=== PATIENT | male | born 1980 | race Caucasian/White ===

== ENCOUNTER 2017-02-23 11:06 | Inpatient (IN) | payer OTHER ==
[2017-02-23] MEDS ORDERED: NS 1,000 ML IV ONE (13:30)
--- NOTE | 2017-02-23 13:38 | EDPHY ---
General - History Smoking Status: Never smoked Narrative: CHIEF COMPLAINT: Abdominal pain, high white count HISTORY OF PRESENT ILLNESS: Patient complains of right lower quadrant pain, night sweats, intermittent fever and nausea. I evaluated this patient 2 weeks ago and diagnosed with acute , perforated appendicitis with abscess formation. He was taken to the operating room by Dr. Dos Santos. He had a partial laparotomy for ruptured appendix with abscess formation. Extensive washout. He was in the hospital for 4 days. Discharged home stable condition with improvement until the last few days. He has had increasing right lower quadrant pain that radiates down the leg. He was seen in the surgeon's office today by the PA. He had laboratory studies drawn there that was reported leukocytosis of 16,000. He was sent to the emergency department for CT scan. This was conveyed by the PA to the ED attending. No other associated complaints or modifying factors. REVIEW OF SYSTEMS: Ten systems reviewed and are negative unless otherwise noted in the HPI PCP: None currently SPECIALISTS: Dr. Dos Santos and Dr. Mancera PAST MEDICAL HISTORY: Acute appendicitis PAST SURGICAL HISTORY: Laparoscopic appendectomy February 10 SOCIAL HISTORY: Nonsmoker. Independently employed FAMILY HISTORY: Noncontributory EXAMINATION General Appearance: Alert, no distress Head: normocephalic, atraumatic Eyes: Pupils equal and round, no conjunctival pallor or injection ENT, Mouth: Mucous membranes moist Neck: Normal inspection, supple, non-tender Respiratory: Lungs are clear to auscultation Cardiovascular: Regular rate and rhythm. No murmur Gastrointestinal: Abdomen is soft and nondistended. There is moderate induration/mass and tenderness in the right lower quadrant. No tympany. No rigidity. No guarding. Back: non-tender, no bony abnormalities Neurological: A&O, nonfocal, normal gait Skin: Warm and dry, no rash Extremities: Nontender, no pedal edema Psychiatric: Mood and affect normal DIFFERENTIAL DIAGNOSES: Including but not limited to abdominal abscess, peritonitis, postoperative complication, colitis, diverticulitis MDM: 1:35 p.m. Increasing abdominal pain with reported leukocytosis. I evaluated this patient 2 weeks ago and diagnosed with acute, perforated appendicitis with abscess formation. He was taken to the operating room by Dr. Dos Santos. He had a partial laparotomy for ruptured appendix with abscess formation. Extensive washout. He was in the hospital for 4 days. Discharged home stable condition with improvement until the last few days. He now has increasing abdominal pain , night sweats, nausea and an abnormal abdominal exam. He was sent here by the PA from the surgeon's office for CT scan with IV contrast. This has been ordered at 11:15 a.m. but not yet obtained. He is in no acute distress with vital signs stable. He is declining pain medication at this time. 2:02 p.m. Creatinine by i-STAT is 0.9. I have notified ekg technician Kendy, and they will take him to the scanner next. 2:[address] Xiao has been notified by radiologist of the CT scan findings. There is complex abscess formation on the right lower quadrant that does not seem to be reachable by percutaneous drainage. There is an additional fluid collection the pelvis. All discussed with General surgery. 2:50 p.m. Case discussed with General surgery DONTRELL Wyatt. She will review the CT scan with Dr. Alfred and return my call. She does not want us to start antibiotics at this time. 3:20 p.m. Case discussed with General surgery PA. She has entered admission orders for the patient. Plan for Dr. Alfred to see the patient shortly in the ED. Plan for OR for washout. She would like Invanz on hold for the OR. No further orders. He is admitted in stable condition. 3:30 p.m. Contacted again by general surgery DONTRELL Wyatt. She informs me that after further discussion with Dr. Alfred they are not planning to take the patient to the operating room at this time. The plan is for interventional radiology percutaneous drainage of the right lower quadrant abscess and monitoring of the pelvic abscess. Please see her documentation for further care. I have updated the patient of this and he is resting comfortably in no acute distress. He remains NPO 4:00 p.m. Case discussed with Dr. Winslow in the emergency department. He plans for interventional percutaneous drainage of abscess. At this time the patient remains in stable condition and has been admitted to Dr. Alfred. SUPERVISION: Patient was independently examined, but I discussed the case with my secondary supervising physician Dr. Xiao (Shaheen Barroso) The patient was evaluated and managed by the physician assistant speech language pathologist. I have reviewed this chart and I agree with the findings and plan of care as documented , as indicated by my signature. I am the secondary supervising physician. ( Xenia Xiao) - Diagnostics Imaging Results: Imaging Impressions Abdomen CT 02/23/17 11:19 Impression: 1. Complex multilobulated abscess in the right lower quadrant. 2. Small central pelvic fluid collection, suggesting abscess, although lack of enteric contrast slightly limits sensitivity. 3. Additional findings as above. Findings discussed with Dr. Xenia Xiao on February 23, 2017 at 1443 hours. - Objective Vital Signs: Initial Vital Signs Temperature (C) 36.4 C 02/23/17 11:13 Heart Rate 81 02/23/17 11:13 Respiratory Rate 16 02/23/17 11:13 Blood Pressure 114/81 H 02/23/17 11:13 O2 Sat (%) 96 02/23/17 11:13 O2 Delivery Mode Room Air O2 (L/minute) 2 Allergies/Adverse Reactions: No Known Allergies Allergy (Unverified 02/23/17 11:12) Home Medications: Medication Instructions Recorded NK [No Known Home Meds] 02/23/17 Laboratory Results: Laboratory Results 02/24/17 09:32 02/24/17 09:32 WBC 11.08 10^3/uL H 10^3/uL (3.80-9.50) RBC 4.13 10^6/uL L 10^6/uL (4.40-6.38) Hgb 11.8 g/dL L g/dL (13.7-17.5) Hct 35.3 % L % (40.0-51.0) MCV 85.5 fL fL (81.5-99.8) MCH 28.6 pg pg (27.9-34.1) MCHC 33.4 g/dL g/dL (32.4-36.7) RDW 12.9 % % (11.5-15.2) Plt Count 199 10^3/uL D 10^3/uL (150-400) MPV 8.5 fL L fL (8.7-11.7) Neut % (Auto) 72.5 % % (39.3-74.2) Lymph % (Auto) 12.8 % L % (15.0-45.0) [place] % (Auto) 12.2 % % (4.5-13.0) Eos % (Auto) 1.4 % % (0.6-7.6) Baso % (Auto) 0.6 % % (0.3-1.7) Nucleat RBC Rel Count 0.0 % % (0.0-0.2) Absolute Neuts (auto) 8.03 10^3/uL H 10^3/uL (1.70-6.50) Absolute Lymphs (auto) 1.42 10^3/uL 10^3/uL (1.00-3.00) Absolute Monos (auto) 1.35 10^3/uL H 10^3/uL (0.30-0.80) Absolute Eos (auto) 0.16 10^3/uL 10^3/uL (0.03-0.40) Absolute Basos (auto) 0.07 10^3/uL 10^3/uL (0.02-0.10) Absolute Nucleated RBC 0.00 10^3/uL 10^3/uL (0-0.01) Immature Gran % 0.5 % % (0.0-1.1) Immature Gran # 0.05 10^3/uL 10^3/uL (0.00-0.10) Microbiology Results: MICROBIOLOGY 02/23/17 17:00 Abdomen - Aspirate Gram Stain - Final 02/23/17 17:00 Abdomen - Aspirate Anaerobic Culture - Preliminary Medications Given: Ertapenem (Invanz) 1 gm IVP DAILY FRANCESCA PRN Reason: Protocol Stop: 03/26/17 08:59 Last Admin: 02/24/17 09:07 Dose: 1 gm Sodium Chloride (Ns) 1,000 mls @ 30 mls/hr IV CONT FRANCESCA Stop: 08/22/17 15:59 Last Admin: 02/23/17 17:11 Dose: 1,000 mls Potassium Chloride/Dextrose/Sod Cl (D5w 1/2 Ns W/ 20 Kcl/L) 1,000 mls @ 100 mls /hr IV CONT FRANCESCA Stop: 08/22/17 21:44 Last Admin: 02/23/17 22:20 Dose: 1,000 mls Ibuprofen (Motrin) 600 mg PO Q6HRS PRN PRN Reason: Pain, Inflammatory Stop: 08/23/17 11:13 Last Admin: 02/24/17 11:37 Dose: 600 mg Senna/Docusate Sodium (Senokot-S) 1 - 2 tab PO BID FRANCESCA PRN Reason: Protocol Stop: 08/23/17 11:29 Last Admin: 02/24/17 11:34 Dose: 2 tab Discontinued Medications Hydrocodone Bitart/Acetaminophen ([place] 5/325) 2 tab PO Q4 PRN PRN Reason: Pain, Moderate Able to Take PO Stop: 03/05/17 17:14 Last Admin: 02/24/17 12:23 Dose: 1 tab Ertapenem (Invanz) 1 gm IVP EDNOW ONE PRN Reason: Protocol Stop: 02/23/17 15:08 Last Admin: 02/23/17 16:22 Dose: 1 gm Fentanyl (Sublimaze) 0 mcg IVP ONCALL PRN PRN Reason: Per provider during procedure Stop: 02/23/17 16:52 Last Admin: 02/23/17 17:11 Dose: 150 mcg Sodium Chloride (Ns) 1,000 mls @ 0 mls/hr IV EDNOW ONE; Wide Open PRN Reason: Protocol Stop: 02/23/17 13:31 Last Admin: 02/23/17 14:06 Dose: 1,000 mls Midazolam HCl (Versed) 0 mg IVP ONCALL PRN PRN Reason: Per provider during procedure Stop: 02/23/17 16:52 Last Admin: 02/23/17 17:11 Dose: 2 mg Departure - Departure Disposition: [facility] Acute Clinical Impression: Abscess of male pelvis Intra-abdominal abscess post-procedure Qualifiers: Encounter type: initial encounter Qualified Code(s): T81.4XXA - Infection following a procedure, initial encounter Condition: Good
[2017-02-23] MEDS ORDERED: IOPAMIDOL (ISOVUE-300) 100 ML BTL ONE ×2 (14:04→17:13)
[2017-02-23] MEDS ORDERED: ERTAPENEM 1 GM VIAL IVP ONE (15:07)
[2017-02-23] MEDS ORDERED: ONDANSETRON 4 MG/2 ML VIAL IVP PRN (15:09)
[2017-02-23] MEDS ORDERED: ONDANSETRON DISINTEGRATING 4 MG TAB PO PRN (15:09)
[2017-02-23] MEDS ORDERED: diphenhydrAMINE 25 MG CAP PO PRN (15:09)
[2017-02-23] MEDS ORDERED: PROTAMINE SULFATE 50 MG/5 ML VIAL IVP PRN (15:52)
[2017-02-23] MEDS ORDERED: ALTEPLASE 2 MG VIAL IVP PRN (15:52)
[2017-02-23] MEDS ORDERED: fentaNYL 100 MCG/2 ML INJ IVP PRN (15:52)
[2017-02-23] MEDS ORDERED: HEPARIN 10,000 UNIT/10 ML MDV (1,000 UNIT/ML) IVP PRN (15:52)
[2017-02-23] MEDS ORDERED: MEPERIDINE 25 MG/ML SYR IVP PRN (15:52)
[2017-02-23] MEDS ORDERED: NALOXONE HCL 0.4 MG/ML INJ IVP PRN (15:52)
[2017-02-23] MEDS ORDERED: GLUCAGON HCL 1 MG VIAL IVP PRN (15:52)
[2017-02-23] MEDS ORDERED: MIDAZOLAM 2 MG/2 ML VIAL IVP PRN (15:52)
[2017-02-23] MEDS ORDERED: FLUMAZENIL 0.5 MG/5 ML MDV IVP PRN (15:52)
[2017-02-23] MEDS ORDERED: NS 1,000 ML IV SCH (16:00)
[2017-02-23 16:17] LABS: INR 1.17 (0.83-1.16); PROTIME(PATIENT) 15.1 SEC (12.0-15.0)
--- NOTE | 2017-02-23 17:12 | PDPROPOC ---
Sedation Plan of Care Sedation Plan of Care: vital signs stable (tachycardic) ASA Classification: ASA 3 Planned drugs: fentanyl, midazolam Mallampati Score: Class 2 Mallampati Reference Image: Patient passed 3-3-2 rule?: Yes
--- NOTE | 2017-02-23 17:15 | PDRADPN ---
Radiology Procedure Note Date of Procedure: 02/23/17 Radiologist: Roge Winslow Anesthesia: IV Sedation Pre-op Diagnosis: Abdominal abscesses Post-op Diagnosis: Same Indication: RLQ pain and chills for last four days. Appendectomy two weeks ago. Procedure: Percutaneous abscess drainage Finding(s): 12 ml thick golden pus from right lower quadrant, anterior abdomen. No communication to deeper collection found today. Inf/Abcess present in the surg proc area at time of surgery?: Yes Depth: Organ Space EBL: Minimal Complications: None. Drains: Other (10 F pigtail) Specimen(s): 10 ml pus sent to lab for aerobic, anaerobic, and fungal stains and cultures.
--- NOTE | 2017-02-23 17:48 | GHP ---
[f rep st] HISTORY AND PHYSICAL DATE OF ADMISSION: 02/23/2017 ADMITTING DIAGNOSIS: Right lower quadrant pain after perforated appendicitis. HISTORY OF PRESENT ILLNESS: The patient is a pleasant 36-year-old man who was taken to the operating room by Dr. Aroldo Dos Santos on 02/06/2017. At the time of surgery, he was found to have acute perforated appendicitis with an abscess cavity and multiple fecaliths. He completed a course of antibiotics as an outpatient. He did not have a drain placed. Approximately 2 weeks after his surgery, he developed worsening fatigue, night sweats, and right lower quadrant pain. He describes the pain as intermittent but sharp. He denies any nausea, vomiting, or fevers. He reports normal appetite, as well as normal bowel function. I saw and evaluated him in the office this morning, at which time he had a palpable mass in his right lower quadrant. I attempted to get a CT scan authorized as an outpatient, but this is not feasible, so I sent him through the emergency room. This morning, prior to his appointment, he had lab work done, most notably revealing a leukocytosis of 16,000. In the ER, he had an abdominal CT which revealed complex multilobulated abscess in the right lower quadrant with a small central pelvic fluid collection measuring approximately 2 x 3 cm. PAST MEDICAL HISTORY: None. PAST SURGICAL HISTORY: Laparoscopic open-assist appendectomy, oral surgery. FAMILY HISTORY: Noncontributory. SOCIAL HISTORY: He is with 3 children. He denies tobacco, alcohol, or recreational drug use. REVIEW OF SYSTEMS: Ten-point review of systems negative, aside from HPI. PHYSICAL EXAMINATION: VITALS: Temperature was 97.3 Fahrenheit in our office. GENERAL: Well-developed, well-nourished man in no acute distress. Nontoxic appearing. HEENT: Normocephalic, atraumatic. No hearing deficits. Pupils equal and round. No scleral icterus. Mucous membranes moist. NECK: Trachea midline. RESPIRATORY: Clear to auscultation bilaterally. No increased work of breathing. CARDIOVASCULAR: Regular rate and rhythm. No peripheral edema. ABDOMEN: Hypoactive bowel sounds throughout. Soft, nondistended. He has tenderness to palpation in the right lower quadrant with a palpable mass in this area. No other tenderness to palpation of the remainder of the abdomen. I do not detect any rebound or guarding. SKIN: Warm and dry. No rash. MUSCULOSKELETAL: Normal gait. Normal nails. PSYCH: Mood and affect normal. IMPRESSION AND PLAN: The patient is a 36-year-old man with an intra-abdominal abscess following perforated appendicitis. The case was discussed in great detail with Dr. Alfred. Dr. Alfred recommends that the patient have percutaneous drainage placed by Interventional Radiology of the right lower quadrant fluid collection. At this time, we will monitor the pelvic fluid collection. If any increase in size or no improvement, then he may require diagnostic laparoscopy with washout. He will remain n.p.o. at this time for his procedure. The case was discussed with Dr. Winslow. He will receive IV Invanz while inpatient. I saw and evaluated the patient this morning in our office, and the patient was additionally evaluated by Dr. Alfred. /[id number]/MODL MTDD
[2017-02-23] MEDS: HYDROCODONE/APAP 5/325 TAB PO PRN (18:55)
--- NOTE | 2017-02-23 21:39 | SOAPPROG ---
SOAP Progress Note Assessment/Plan: Assessment: 36-year-old male seen in conjunction with Maira JON. Patient 2 weeks status post perforated appendix and now presents with fever right lower quadrant abdominal pain. CT scan shows a periappendiceal abscess in a possible small pelvic abscess/right upper quadrant abscess was drained percutaneously with some success but pelvic abscess is not a minimal at this time to percutaneous drainage Patient appears comfortable/HEENT nonicteric without adenopathy Chest clear Cor regular rhythm Abdomen soft slightly distended very tender in the right lower quadrant/no hernias/well-healed midline incision Genitalia normal Extremities full range of motion full pulses Neurologic exam is physiologic Vital signs stable but temp 102.8 Risks and options fully discussed with the patient and his Plan: Monitor on IV antibiotics/if not improving then consider laparoscopy and/ or laparotomy for better drainage 02/23/17 21:36 Objective: Vital Signs Temp Pulse Resp BP Pulse Ox 38.9 C H 114 H 14 117/71 94 02/23/17 19:38 02/23/17 18:42 02/23/17 18:42 02/23/17 18:42 02/23/17 18:42 Microbiology 02/23/17 17:00 Gram Stain - Final Abdomen - Aspirate 02/22/17 02/23/17 02/24/17 05:59 05:59 05:59 Intake Total 1300 Balance 1300 PT 15.1 SEC (12.0-15.0) H 02/23/17 13:50 INR 1.17 (0.83-1.16) H 02/23/17 13:50 ICD10 Worksheet Patient Problems: Problems Problem Status Onset Abscess of male pelvis Acute Intra-abdominal abscess post-procedure Acute
[2017-02-23] MEDS ORDERED: D5W 1/2 NS W/ 20 KCl/L 1,000 ML IV SCH (21:45)
[2017-02-24] MEDS: HYDROCODONE/APAP 5/325 TAB PO PRN ×3 (03:14→12:23)
--- NOTE | 2017-02-24 08:51 | SOAPPROG ---
SOAP Progress Note Assessment/Plan: Assessment/Plan: - 36yo M c abscess after perforated appy, perc drained - CT scan and hospital course reviewed, drain placed yesterday. - Today, he feels better than he did stating that the pain is improved. He continues to tolerate a regular diet and have bowel function - LOLA with purulent drainage, to bulb suction. On BS abx - WBC pending, will trend - Plan to cont abx, clinically improving. Abscessogram in next 2 days 02/24/17 08:49 Subjective: feels better, pain resolving Objective: Vital Signs Temp Pulse Resp BP Pulse Ox 38.3 C 106 H 18 114/70 94 02/24/17 03:15 02/24/17 03:15 02/24/17 03:15 02/24/17 03:15 02/24/17 03:15 Microbiology 02/23/17 17:00 Gram Stain - Final Abdomen - Aspirate 02/23/17 02/24/17 02/25/17 05:59 05:59 05:59 Intake Total 1750 Output Total 225 475 Balance 1525 -475 PT 15.1 SEC (12.0-15.0) H 02/23/17 13:50 INR 1.17 (0.83-1.16) H 02/23/17 13:50 ICD10 Worksheet Patient Problems: Problems Problem Status Onset Abscess of male pelvis Acute Intra-abdominal abscess post-procedure Acute
[2017-02-24] MEDS: ERTAPENEM 1 GM VIAL IVP SCH (09:07)
[2017-02-24 09:51] LABS: PLATELET COUNT 199 10^3/uL (150-400)
[2017-02-24] MEDS ORDERED: BISACODYL 10 MG SUPP PR PRN (10:14)
[2017-02-24] MEDS ORDERED: POLYETHYLENE GLYCOL 3350 17 GM PKT PO PRN (10:14)
[2017-02-24] MEDS ORDERED: MAGNESIUM HYDROXIDE 30 ML UDCUP PO PRN (10:14)
[2017-02-24] MEDS: SENNOSIDES/DOCUSATE SODIUM TAB PO SCH ×2 (11:34→20:22)
[2017-02-24] MEDS: IBUPROFEN 600 MG TAB PO PRN ×2 (11:37→17:43)
[2017-02-24] MEDS ORDERED: oxyCODONE IR 5 MG TAB PO PRN (15:09)
[2017-02-24] MEDS ORDERED: ACETAMINOPHEN 325 MG TAB PO PRN (15:09)
--- NOTE | 2017-02-24 17:36 | ASMTCMCOM ---
CM Note CM Note Notes: Bryan was recently dc'd after appendectomy, He was at home and started to feel ill again. He is admitted with abcess. He currently lives with his and 3 children. Plan of care unclear at this time. May need assistant terminal manager antibiotics, but again unclear. CM to follow. Date Signed: 02/24/2017 05:36 PM Electronically Signed By:Lilo Zavala RN
[2017-02-24] MEDS ORDERED: SENNOSIDES/DOCUSATE SODIUM TAB PO SCH (21:00)
[2017-02-25] MEDS: IBUPROFEN 600 MG TAB PO PRN ×4 (00:03→22:52)
[2017-02-25] MEDS: ERTAPENEM 1 GM VIAL IVP SCH (09:23)
[2017-02-25] MEDS: SENNOSIDES/DOCUSATE SODIUM TAB PO SCH ×2 (09:42→21:51)
--- NOTE | 2017-02-25 16:59 | SOAPPROG ---
SOAP Progress Note Assessment/Plan: Assessment: Plan: Objective: Vital Signs Temp Pulse Resp BP Pulse Ox 36.4 C 77 18 121/63 H 95 02/25/17 14:53 02/25/17 14:53 02/25/17 14:53 02/25/17 14:53 02/25/17 14:53 02/24/17 02/25/17 02/26/17 05:59 05:59 05:59 Output Total 30 20 Balance -30 -20 PT 15.1 SEC (12.0-15.0) H 02/23/17 13:50 INR 1.17 (0.83-1.16) H 02/23/17 13:50 ICD10 Worksheet Patient Problems: Problems Problem Status Onset Abscess of male pelvis Acute Intra-abdominal abscess post-procedure Acute
[2017-02-25 23:36] VITALS: RESP 16
[2017-02-26 07:21] VITALS: BP 101/63; PULSE 67; TEMP 98.2; O2SAT 96
[2017-02-26] MEDS: SENNOSIDES/DOCUSATE SODIUM TAB PO SCH (07:57)
[2017-02-26] MEDS: IBUPROFEN 600 MG TAB PO PRN (08:06)
[2017-02-26] MEDS: ERTAPENEM 1 GM VIAL IVP SCH (08:07)
--- NOTE | 2017-02-26 10:22 | SOAPPROG ---
SOAP Progress Note Assessment/Plan: Assessment/Plan: - 36yo M c abscess after perforated appy, perc drained - drain study yesterday shows that the abscess is shrinking appropriately - Cx growing strep and b frag, will transition to PO abx on dc - Plan to recheck cbc today, home later this afternoon 02/24/17 08:49 02/26/17 10:21 Subjective: looks and feels well, no complaints Objective: Vital Signs Temp Pulse Resp BP Pulse Ox 36.8 C 67 16 101/63 96 02/26/17 07:20 02/26/17 07:20 02/26/17 07:20 02/26/17 07:20 02/26/17 07:20 02/25/17 02/26/17 02/27/17 05:59 05:59 05:59 Intake Total 1500 400 Output Total 30 20 10 Balance -30 1480 390 PT 15.1 SEC (12.0-15.0) H 02/23/17 13:50 INR 1.17 (0.83-1.16) H 02/23/17 13:50 ICD10 Worksheet Patient Problems: Problems Problem Status Onset Abscess of male pelvis Acute Intra-abdominal abscess post-procedure Acute
[2017-02-26 11:22] LABS: PLATELET COUNT 206 10^3/uL (150-400)
--- NOTE | 2017-02-26 13:32 | PDDCSUM ---
Discharge Summary Discharge Summary: DISCHARGE SUMMARY Date of Admission February 23 Date of Discharge February 26 DISCHARGE DIAGNOSES -abscess status post perforated appendicitis HOSPITAL COURSE The patient was admitted from the ED after CT scan showed an abscess in the right lower quadrant after undergoing laparoscopic appendectomy for perforated appendicitis. He was subsequently taken to Interventional Radiology were percutaneous drain was placed and then to the general medical floor. On the floor, he was placed on IV antibiotics. His white count subsequently subsided, his fevers resolved and he was doing well was subsequently discharged home in stable condition on the afternoon of the on oral antibiotics with his percutaneous drain with instructions of how to take care of it DISCHARGE MEDICATIONS Levaquin 750 daily, Flagyl 500 twice daily for 10 days DISPOSITION Home with drain FOLLOW UP Follow-up with me in the office on Thursday to have your drain removed.
--- NOTE | 2017-02-26 14:39 | ASMTCMCOM ---
CM Note CM Note Notes: Spoke with RN, pt changed to oral antibiotics at [place]. No other needs, pt discharging home w/support of . CM available for any changes. Date Signed: 02/26/2017 02:39 PM Electronically Signed By:Sujata Sapp RN
--- NOTE | 2017-02-26 15:20 | ASDISCHSUM ---
Discharge Information Plan Status:Home with No Needs Medically Cleared to Leave: Discharge Date:02/26/2017 02:47 PM CM D/C Disposition:Home, Routine, Self-Care ADT D/C Disposition:Home, Routine, Self-Care Projected Discharge Date:02/26/2017 02:47 PM Transportation at D/C:Family Discharge Delay Reason: Follow-Up Date:02/26/2017 02:47 PM Discharge Slot: Final Diagnosis: Placement Information Patient Contact Information Contact Name:PRICILLA Relationship: Address:[address] Work Phone: City:[place] [facility] Phone: [facility]/Zip Code:[place] [address] Email: Financial Information Financial Class:HMO and PPO Plans Primary Plan Desc:[employer]URNIM[employer] Primary Plan Number:[id number] Secondary Plan Desc: Secondary Plan Number: Assessment Information [facility] CM Progress Note CM Note CM Note Notes: Bryan was recently dc'd after appendectomy, He was at home and started to feel ill again. He is admitted with [facility]. He currently lives with his and 3 children. Plan of care unclear at this time. May need nursing home antibiotics, but again unclear. CM to follow. Date Signed: 02/24/2017 05:36 PM Electronically Signed By:Lilo Zavala RN [facility] CM Progress Note CM Note CM Note Notes: Spoke with RN, pt changed to oral antibiotics at tx. No other needs, pt discharging home w/support of . CM available for any changes. Date Signed: 02/26/2017 02:39 PM Electronically Signed By:Sujata Sapp RN Intervention Information Intervention Type:*Incorrect Registration Date of Service:02/23/2017 06:45 AM Patient Type:Inpatient Staff Member:TRACIE Colón Kerry Hours: Discipline: Severity: Comment:
== END 2017-02-26 14:47 | disposition home or self-care (01) | DRG 863 ==
LOC: INTOOBSV 15:06 → F3E 18:29 → OBSVTOIN 02-24 15:26
PROVIDERS: ADMIT Surgery; ATTEND Surgery
PROC: 0W9G30Z Drainage of Peritoneal Cavity with Drainage Device, Percutaneous Approach (ICD-10-PCS; principal; 2017-02-23 16:30)
DX: T81.4XXA Infection following a procedure, initial encounter (principal)
CPT/HCPCS: 82947-QW; G0378; J1335; J1644; J2250; J2310; J3010; Q9967